=== PATIENT | male | born 1985 | race Hispanic/Latino ===

== ENCOUNTER 2017-03-28 09:52 | Outpatient (CLI) | payer BC ==
--- NOTE | 2017-03-28 12:15 | RAD ---
THREE VIEWS LUMBAR SPINE: Indication: Low back pain with hip pain radiating down the right leg for two months. Comparison: 05-17-14 FINDINGS: On the standing neutral projection the vertebral body alignment appears within normal limits. Vertebr al body heights are preserved. There is some mild disc space narrowing at L4-5 and L5-S1. With flexio n, no abnormal translational motion is demonstrated. With extension, again, no abnormal translation m otion is demonstrated. IMPRESSION: No abnormal translation motion demonstrated on the flexion/extension lateral lumbar radiographs. POS: [facility]
== END 2017-03-28 09:53 | disposition home or self-care (01) ==
LOC: TBSIIMAG 09:52
PROVIDERS: ATTEND Neurological Surgery
DX: M54.16 Radiculopathy, lumbar region (principal)
CPT/HCPCS: 72100

== ENCOUNTER 2017-04-10 06:12 | Day surgery (SDC) | payer BC ==
[2017-04-09 12:03] VITALS: BMI 32.1
[2017-04-10] MEDS ORDERED: Thrombin 5000 UNITS/5 ML VIAL ONE (06:31)
[2017-04-10] MEDS ORDERED: Bupivacaine 0.5% 10 ML VIAL ONE ×2 (06:31→06:35)
[2017-04-10] MEDS ORDERED: Fentanyl 100 MCG/2 ML VIAL ONE ×2 (06:32)
[2017-04-10] MEDS ORDERED: Clindamycin/D5W 900 mg/50 ml Premix Bag ONE (06:46)
[2017-04-10] MEDS ORDERED: Levofloxacin 500 mg/D5W 100 ml Premix Bag ONE (06:46)
[2017-04-10] MEDS ORDERED: Midazolam HCl 2 mg/2 ml Vial ONE (07:01)
[2017-04-10] MEDS ORDERED: HYDROmorphone 0.5 MG/0.5 ML SYRINGE ONE ×3 (07:37→08:51)
--- NOTE | 2017-04-10 08:23 | OP ---
DATE OF PROCEDURE: 04/10/2017 SURGEON: Brennan Ruff M.D. CRM SOLUTION ARCHITECT: Royce Johnson PA-C. INDICATION: Pain. DIAGNOSIS: Lumbar radiculopathy. PROCEDURE: Right L5 diskectomy. ANESTHESIA: General. TECHNIQUE: The patient was brought into the operating room and placed under general anesthesia. He was flipped from a supine to a prone position on the operating room table. A linear incision was planned over the L5 segment. After prepping and draping and after an appropriate operative pause, the incision was created. The soft tissues were swept right of midline. Self- retaining retractors were placed in the wound for optimal exposure. After confirming the appropriate level of C-arm fluoroscopy, a high-speed cutting drill bit as well as 2, 3, and 4 mm Kerrison was used to perform a laminectomy along the inferior aspect of L5 and the superior aspect of S1. The descending S1 nerve root was identified and mobilized medially with a nerve root retractor. An annulotomy was performed in a large protuberant disk mass at L5. The disk material was removed until the descending S1 nerve root was well- decompressed. The wound was irrigated. Hemostasis was maintained throughout. The wound was then closed in anatomic layers and a pressure dressing was applied. There were no known procedural complications. TERENCE
[2017-04-10] MEDS ORDERED: HYDROcodone/Acetaminophen 5/325 mg Tablet ONE (10:27)
[2017-04-10] MEDS ORDERED: Dexamethasone 20 MG/5 ML VIAL ONE (15:48)
[2017-04-10] MEDS ORDERED: Ketorolac Tromethamine 30 MG/ML VIAL ONE (15:48)
[2017-04-10] MEDS ORDERED: Lidocaine 1% PF 5 ML VIAL ONE (15:48)
[2017-04-10] MEDS ORDERED: Glycopyrrolate 0.2 MG/ML 5 ML SYRINGE ONE (15:48)
[2017-04-10] MEDS ORDERED: Ondansetron HCl/PF 4 MG/2 ML Vial ONE (15:48)
[2017-04-10] MEDS ORDERED: PROPOFOL 200 MG/20 ML VIAL ONE (15:48)
== END 2017-04-10 11:06 | disposition home or self-care (01) ==
LOC: SDC 06:12
PROVIDERS: ATTEND Neurological Surgery
PROC: 0ST20ZZ Resection of Lumbar Vertebral Disc, Open Approach (ICD-10-PCS; principal; 2017-04-10)
PROC: 01NB0ZZ Release Lumbar Nerve, Open Approach (ICD-10-PCS; principal; 2017-04-10)
DX: M51.16 Intervertebral disc disorders with radiculopathy, lumbar region (principal); J45.909 Unspecified asthma, uncomplicated; F32.9 Major depressive disorder, single episode, unspecified; E78.5 Hyperlipidemia, unspecified; E66.9 Obesity, unspecified; Z68.32 Body mass index [BMI] 32.0-32.9, adult; Z79.899 Other long term (current) drug therapy; Z88.0 Allergy status to penicillin
CPT/HCPCS: 76001; 96374; J1100; J1170; J1885; J1956; J2001; J2250; J2405; J2704; J3010; J3490

== ENCOUNTER 2017-06-13 16:13 | Outpatient (CLI) | payer BC ==
--- NOTE | 2017-06-13 18:47 | MRI ---
MR OF THE LUMBAR SPINE WITH AND WITHOUT IV CONTRAST: 06/13/17 INDICATION: History of new onset low back pain with extension into the right leg causing the foot and toes to go numb for one and a half weeks. Patient had history of a discectomy in March 2017. Findings are compared to a prior MR lumbar spine from [facility] dated 03/15/17. FINDINGS: The bone marrow signal intensity is within normal limits. There is postprocedural change of a right hemilaminectomy at L5-S1. The conus is seen to terminate at approximately T12-L1. At L5-S1, the previously seen right paracentral disc herniation is much less prominent than seen on t he comparison examination. There is less mass effect on the traversing right S1 nerve root within the subarticular lateral recess. There is some residual broad based bulge with some residual disc protru prisca seen within the right paracentral space encroaching upon the traversing right S1 nerve root with contact but without definite impingement. The broad based disc osteophyte complex at L5-S1 induces m ild bilateral neural foraminal narrowing which is stable to the prior exam. At L4-5, there is a broad based bulge with a superimposed right paracentral to right central disc ext rusion measuring 1.1 cm in its greatest craniocaudad dimension. The extrusion appears new from the co mparison examination. The disc extrusion is inducing moderate to severe right lateral recess narrowin g with potential for impingement of the traversing right L5 nerve root, best seen on image 49 of ser ies 7 and image 7 of series 3. No neural foraminal narrowing is noted. At the L3-4 level, there is a broad based bulge with a superimposed central protrusion and small cent ral annular fissure. The broad based does cause some encroachment on the lateral recesses, left great er than right without definite impingement. This is stable to the prior exam. At the L2-3 level, there is no appreciable central canal or neural foraminal narrowing. At L1-2, there is no appreciable central canal or neural foraminal narrowing. At T12-L1, there is no appreciable central canal or neural foraminal narrowing. There is a small righ t paracentral protrusion at T11-T12 which was partially imaged on the comparison examination on the s agittal series only but is clipped on the very superior aspect of the field of view and was not well appreciated on the comparison examination. This is likely stable to the prior exam. This does not ind uce any neural foraminal narrowing or gross central canal narrowing. Postcontrast images demonstrate some mild fibrotic enhancement seen involving the right posterolatera l, right lateral and right anterolateral epidural space near the disc protrusion site and laminectomy site at L5-S1. There is some slight asymmetric enhancement seen involving the exited right L5 nerve root which may reflect a component of perineural fibrosis. IMPRESSION: 1. Improvement in the extent of the disc protrusion at L5-S1 with less mass effect on the jocelyn sing right S1 nerve root. There is enhancement seen in the epidural space of the postoperative right hemilaminectomy site at L5-S1 with some asymmetric enhancement of the exited right L5 nerve suspiciou s for perineural fibrosis. 2. Worsening right central or right paracentral disc extrusion at L4-5 inducing moderate to justen re narrowing of the right lateral recess at L4-5 with potential for impingement of the traversing rig ht L5 nerve root. 3. Stable broad based bulge with central protrusion and central annular fissure at L3-4. POS: [facility]
== END 2017-06-13 16:14 | disposition home or self-care (01) ==
LOC: MRI 16:13
PROVIDERS: ATTEND Neurological Surgery
DX: M51.17 Intervertebral disc disorders with radiculopathy, lumbosacral region (principal); M48.061 Spinal stenosis, lumbar region without neurogenic claudication
CPT/HCPCS: 72158

== ENCOUNTER 2017-07-16 11:59 | Outpatient (CLI) | payer BC | END 2017-07-16 12:00 | disposition home or self-care (01) | LOC: LABBT 11:59 | PROVIDERS: ATTEND Neurological Surgery | DX: Z01.818 Encounter for other preprocedural examination (principal); M54.16 Radiculopathy, lumbar region ==

== ENCOUNTER 2017-07-19 05:45 | Day surgery (SDC) | payer BC ==
[2017-07-16 12:08] VITALS: BMI 30.8
--- NOTE | 2017-07-16 22:12 | HP ---
HISTORY OF PRESENT ILLNESS: Mr. Wolf is known to us for previous L5 diskectomy earlier this year, who returns now for increasing right lower extremity L5 pains with a repeat MRI that shows a large L4 disk now problem of his symptoms. He has treated this conservatively now for several months and is ready to move forward with surgery again. PAST MEDICAL HISTORY: Significant for asthma, allergies, depression, hyperlipidemia. ALLERGIES: PENICILLIN. PAST SURGICAL HISTORY: Lumbar diskectomy. PHYSICAL EXAMINATION: Alert and oriented x3. Gait is antalgic. Lower extremity motor exam is estrella l. ASSESSMENT: Lumbar herniated disk. PLAN: Dr. Ruff met with the patient, reviewed imaging and advocated for a right L4 diskectomy. He explained to the patient the risks, benefits, and alternatives of the procedure. The patient express ed understanding that in for surgery as discussed. The patient is mentally competent and capable of making medical decisions for himself and we will move forward with surgery as planned. This is Michael Johnson PA-C dictating for Brennan Ruff M.D.
[2017-07-19] MEDS ORDERED: Clindamycin/D5W 900 mg/50 ml Premix Bag ONE (06:00)
[2017-07-19] MEDS ORDERED: Levofloxacin 500 mg/D5W 100 ml Premix Bag ONE (06:00)
[2017-07-19] MEDS ORDERED: Bupivacaine HCl 0.5%/Epinephrine 1:200,000/PF 30 ml Vial ONE (06:39)
[2017-07-19] MEDS ORDERED: Thrombin 5000 UNITS/5 ML VIAL ONE (06:40)
[2017-07-19] MEDS ORDERED: Midazolam HCl 2 mg/2 ml Vial ONE (06:50)
[2017-07-19] MEDS ORDERED: Fentanyl 100 MCG/2 ML VIAL ONE ×4 (07:00→08:51)
--- NOTE | 2017-07-19 09:01 | OP ---
DATE OF PROCEDURE: 07/19/2017 SURGEON: Brennan Ruff M.D. INDUSTRIAL EDUCATION TEACHER: None. INDICATION: Pain. DIAGNOSIS: Lumbar radiculopathy. PROCEDURE PERFORMED: Right L4-L5 hemilaminectomy, medial facetectomy, decompression. ANESTHESIA: General. TECHNIQUE: The patient was brought into the operating room and placed under general anesthesia. He was flipped from a supine to a prone position on the operating room table. A linear incision was indio nned over the L4-L5 segment, which was directly above the previously operated site. After prepping a nd draping and after an appropriate operative pause, the incision was created. The soft tissues were swept right of midline. A self-retaining retractor was placed in the wound for optimal exposure. A fter confirming the appropriate level with C-arm fluoroscopy, a high-speed cutting drill bit was used to perform a laminectomy along the inferior aspect of L4 and superior aspect of L5. Laminectomy was extended using Kerrisons both inferiorly, superiorly and laterally to encompass the medial aspect of the facet joint. The descending L5 nerve root was identified where it was well decompressed includi ng the proximal aspect of the foramen as it exited through L5. I mobilized the nerve root medially t o explore the L4-L5 disc. There was minimal to no protuberance and therefore I decided not to perfor m an annulotomy. Laminectomy and medial facetectomy alone were enough to decompress the descending L 5 nerve root. The wound was irrigated. Hemostasis was maintained throughout. The wound was then cl osed in anatomic layers and a pressure dressing was applied. There were no known procedural complica tions.
[2017-07-19] MEDS ORDERED: Morphine 4 MG/ML VIAL ONE (09:32)
[2017-07-19] MEDS ORDERED: HYDROcodone/Acetaminophen 10/325 mg Tablet ONE (10:55)
[2017-07-19] MEDS ORDERED: PROPOFOL 200 MG/20 ML VIAL ONE (13:27)
[2017-07-19] MEDS ORDERED: Dexamethasone 20 MG/5 ML VIAL ONE (13:27)
[2017-07-19] MEDS ORDERED: Lidocaine 1% PF 5 ML VIAL ONE (13:27)
[2017-07-19] MEDS ORDERED: Glycopyrrolate 0.2 MG/ML 5 ML SYRINGE ONE (13:27)
[2017-07-19] MEDS ORDERED: Esmolol 100 MG/10 ML VIAL ONE (13:27)
[2017-07-19] MEDS ORDERED: Ondansetron HCl/PF 4 MG/2 ML Vial ONE (13:27)
== END 2017-07-19 10:50 | disposition home or self-care (01) ==
LOC: SDC 05:45
PROVIDERS: ATTEND Neurological Surgery
PROC: 01NB0ZZ Release Lumbar Nerve, Open Approach (ICD-10-PCS; principal; 2017-07-19)
DX: M54.16 Radiculopathy, lumbar region (principal); J45.909 Unspecified asthma, uncomplicated; F32.9 Major depressive disorder, single episode, unspecified; E78.5 Hyperlipidemia, unspecified; Z88.0 Allergy status to penicillin
CPT/HCPCS: 76001; 96374; J0670; J1956; J2250; J2270; J3010; J3490

== ENCOUNTER 2020-05-17 13:32 | Outpatient (CLI) | payer BC ==
[~2020-05-17 13:32] MED LIST: Magnevist 469MG/ML 20 ML VIAL ONE
== END 2020-05-17 13:33 | disposition home or self-care (01) ==
LOC: BICMRI 13:32
PROVIDERS: ATTEND Neurological Surgery
DX: M47.26 Other spondylosis with radiculopathy, lumbar region (principal); Z98.890 Other specified postprocedural states
CPT/HCPCS: 72158; A9579